=== PATIENT | male | born 1990 | race American Indian/Alaskan Native ===

== ENCOUNTER 2019-05-22 13:24 | Emergency (ER) | payer BC ==
--- NOTE | 2019-05-22 13:37 | Emergency Department Report ---
Blank Doc - Documentation Documentation: This is a 28-year-old male that presents with left sided facial swelling pain. This initial assessment/diagnostic orders/clinical plan/treatment(s) is/are subject to change based on patient's health status, clinical progression and re- assessment by fellow clinical providers in the ED. Further treatment and workup at subsequent clinical providers discretion. Patient/guardians urged not to elope from the ED as their condition may be serious if not clinically assessed and managed. Initial orders include: 1- Patient sent to [facility] for further evaluation and treatment 2- labs for possible CT
[2019-05-22 14:09] LABS: Basophils % (Auto) 0.4 % (0.0-1.8); Eosinophils # (Auto) 0.1 K/mm3 (0.0-0.4); Hematocrit 45.7 % (35.5-45.6); Hemoglobin 15.7 gm/dl (11.8-15.2); Lymphocytes # (Auto) 1.1 K/mm3 (1.2-5.4); Mean Corpuscular HGB Conc 34 % (32-34); Mean Corpuscular Volume 91 fl (84-94); Monocytes # (Auto) 0.9 K/mm3 (0.0-0.8); Platelet Count 202 K/mm3 (140-440); Red Blood Count 5.04 M/mm3 (3.65-5.03); Red Cell Distribution Width 13.2 % (13.2-15.2)
[2019-05-22 14:28] LABS: BUN/Creatinine Ratio 11; Blood Urea Nitrogen 12 mg/dL (9-20); Calcium 8.9 mg/dL (8.4-10.2); Hemolysis Index 12
[2019-05-22] MEDS ORDERED: IBUPROFEN 800 MG TAB PO ONE (15:06)
[2019-05-22] MEDS ORDERED: CLINDAMYCIN 300 MG CAP PO ONE (15:06)
--- NOTE | 2019-05-22 15:41 | Emergency Department Report ---
ED ENT HPI - General Chief complaint: Dental/Oral Stated complaint: SWOLLEN JAW Time Seen by Provider: 05/22/19 13:33 Source: patient Mode of arrival: Ambulatory Limitations: No Limitations - History of Present Illness Initial comments: The patient is a 28)-year-old male who presents to ED complaining of 10/10 pain and swelling in the left side of his mouth x 2 days . Patient states that the pain started 3 days ago and has increased in severity over the last day. The pain is exacerbated by eating and opening of the mouth. Patient states the pain is alleviated initially with pain medication but comes back. Patient states that pain is localized to his left lower jaw, he states of swelling worsened this morning. patient describes a as a throbbing, pressure- like sensation. Patient states otherwise well and has no other complaints. Patient has had no fevers and no chills. No chest pain, no shortness of breath. No abdominal pain. No shortness of breath or recent trauma to the face. MD complaint: tooth pain -: Gradual Location: tooth # Severity: moderate (19) Severity scale (0 -10): 7 Quality: aching Consistency: constant Worsens with: medication Context- Dental: history of dental caries, poor dental care Associated Symptoms: toothache. denies: fever, cough, pain with swallowing, so re throat, discharge from ear, rhinorrhea - Related Data Previous Rx's Medication Instructions Recorded Last Taken Type Amoxicillin [Amoxicillin TAB] 875 mg PO BID #20 tablet 08/04/15 Unknown Rx Fluticasone [Flonase] 1 spray NS QDAY #1 bottle 08/04/15 Unknown Rx predniSONE [Deltasone] 20 mg PO QDAY #6 tab 08/04/15 Unknown Rx Acetaminophen/Codeine [Tylenol 1 tab PO Q6H #10 tab 05/22/19 Unknown Rx /Codeine # 3 tab] Clindamycin [Clindamycin CAP] 300 mg PO TID #21 capsule 05/22/19 Unknown Rx Ibuprofen [Motrin 800 MG tab] 800 mg PO Q8HR PRN #30 tablet 05/22/19 Unknown Rx Allergies Allergy/AdvReac Type Severity Reaction Status Date / Time No Known Allergies Allergy Verified 05/22/19 13:26 ED Dental HPI - General Chief complaint: Dental/Oral Stated complaint: SWOLLEN JAW Time Seen by Provider: 05/22/19 13:33 Source: patient Mode of arrival: Ambulatory Limitations: No Limitations - Related Data Previous Rx's Medication Instructions Recorded Last Taken Type Amoxicillin [Amoxicillin TAB] 875 mg PO BID #20 tablet 08/04/15 Unknown Rx Fluticasone [Flonase] 1 spray NS QDAY #1 bottle 08/04/15 Unknown Rx predniSONE [Deltasone] 20 mg PO QDAY #6 tab 08/04/15 Unknown Rx Acetaminophen/Codeine [Tylenol 1 tab PO Q6H #10 tab 05/22/19 Unknown Rx /Codeine # 3 tab] Clindamycin [Clindamycin CAP] 300 mg PO TID #21 capsule 05/22/19 Unknown Rx Ibuprofen [Motrin 800 MG tab] 800 mg PO Q8HR PRN #30 tablet 05/22/19 Unknown Rx Allergies Allergy/AdvReac Type Severity Reaction Status Date / Time No Known Allergies Allergy Verified 05/22/19 13:26 ED Review of Systems ROS: Stated complaint: SWOLLEN JAW Other details as noted in HPI Comment: All other systems reviewed and negative ED Past Medical Hx - Past Medical History Previous Medical History?: No - Surgical History Past Surgical History?: No - Social History Smoking Status: Current Every Day Smoker Substance Use Type: None - Medications Home Medications: Home Medications Medication Instructions Recorded Confirmed Last Taken Type Amoxicillin [Amoxicillin TAB] 875 mg PO BID #20 tablet 08/04/15 Unknown Rx Fluticasone [Flonase] 1 spray NS QDAY #1 bottle 08/04/15 Unknown Rx predniSONE [Deltasone] 20 mg PO QDAY #6 tab 08/04/15 Unknown Rx Acetaminophen/Codeine [Tylenol 1 tab PO Q6H #10 tab 05/22/19 Unknown Rx /Codeine # 3 tab] Clindamycin [Clindamycin CAP] 300 mg PO TID #21 capsule 05/22/19 Unknown Rx Ibuprofen [Motrin 800 MG tab] 800 mg PO Q8HR PRN #30 tablet 05/22/19 Unknown Rx ED Physical Exam - General Limitations: No Limitations General appearance: alert, in no apparent distress - Head Head exam: Present: atraumatic, normocephalic - Eye Eye exam: Present: normal appearance - ENT ENT exam: Present: mucous membranes moist, TM's normal bilaterally - Expanded ENT Exam Expanded Mouth exam: Absent: drooling, trismus, muffled voice Teeth exam: Present: fractured tooth # (19), dental tenderness # (19), gingival enlargement (19) - Neck Neck exam: Present: normal inspection, full ROM. Absent: tenderness, lymphadenopathy - Respiratory Respiratory exam: Present: normal lung sounds bilaterally. Absent: respiratory distress - Cardiovascular Cardiovascular Exam: Present: regular rate, normal rhythm. Absent: systolic murmur, diastolic murmur, rubs, gallop - GI/Abdominal GI/Abdominal exam: Present: soft, normal bowel sounds - Rectal Rectal exam: Present: deferred - Extremities Exam Extremities exam: Present: normal inspection - Back Exam Back exam: Present: normal inspection - Neurological Exam Neurological exam: Present: alert, oriented X3 - Psychiatric Psychiatric exam: Present: normal affect, normal mood - Skin Skin exam: Present: warm, dry, intact, normal color. Absent: rash ED Course Vital Signs 05/22/19 13:36 Temperature 98.4 F Pulse Rate 75 Respiratory 16 Rate Blood Pressure 110/81 O2 Sat by Pulse 97 Oximetry ED Medical Decision Making - Lab Data Result diagrams: 05/22/19 13:51 05/22/19 13:51 - Medical Decision Making 28-year-old male who presents with left-sided Facial pain secondary to odontogenic abscess ED course: Patient received 300 mg of clindamycin, and 800 mo of Motrin Odontogenic infection versus ear infection. Based upon history and physical examination, pain is a result of an infection of tooth number 19 and that the pain Pt feels on the right side of his face and towards the ear is referred pain from this infectious process. Pt has no evidence of acute impending airway compromise. At this point, patient will be discharged home on some antibiotics and pain trial, she will do well with an outpatient course of antibiotics. Follow up with the Dental Clinic as referred Vital signs are normal patient is in no acute distress. Pt had an effect uneventful ED stay Critical care attestation.: If time is entered above; I have spent that time in minutes in the direct care of this critically ill patient, excluding procedure time. ED Disposition Clinical Impression: Dental abscess, Pain, dental Disposition: [id number] TO HOME OR SELFCARE Is pt being admited?: No Does the pt Need Aspirin: No Condition: Stable Instructions: Dental Abscess (ED), Toothache (ED), Dental Caries (ED) Additional Instructions: Make sure to follow up with the dentist as discussed. Take all your medications as you've been prescribed. If you have any worsening symptoms or develop new symptoms please return to ED immediately. Prescriptions: Clindamycin [Clindamycin CAP] 300 mg PO TID #21 capsule Ibuprofen [Motrin 800 MG tab] 800 mg PO Q8HR PRN #30 tablet PRN Reason: Sore Throat Acetaminophen/Codeine [Tylenol /Codeine # 3 tab] 1 tab PO Q6H #10 tab Referrals: LEONIE ROWAN MD [Primary Care Provider] - 3-5 Days [facility] [Outside] - 3-5 Days [facility] [Outside] - 3-5 Days [facility] [Outside] - 3-5 Days Forms: Accompanied Note, Work/School Release Form(ED) Time of Disposition: 15:51
[2019-05-22 16:20] VITALS: BP 115/70
== END 2019-05-22 16:17 | disposition home or self-care (01) ==
LOC: ED 13:24
DX: K04.7 Periapical abscess without sinus (principal); K06.1 Gingival enlargement; K03.81 Cracked tooth; F17.200 Nicotine dependence, unspecified, uncomplicated; Z79.899 Other long term (current) drug therapy; R22.0 Localized swelling, mass and lump, head
CPT/HCPCS: 36415; 80048; 85025